=== PATIENT | male | born 1975 | race Caucasian/White ===

== ENCOUNTER 2018-10-20 21:45 | Emergency (ER) | payer BC ==
[2018-10-20] MEDS ORDERED: PROCHLORPERAZINE INJ 5 MG/ML 2 ML VIAL IM ONE (22:15)
[2018-10-20] MEDS ORDERED: Morphine 4 MG/ML VIAL (1 ml) 4 MG/ML VIAL IM ONE (22:15)
[2018-10-20] MEDS ORDERED: Ketorolac INJ* 30 MG/ML 1 ML VIAL IM ONE (22:16)
--- NOTE | 2018-10-20 22:16 | ED ---
Back Pain - HPI Summary HPI Summary: This patient is a 43 year old male presenting to [facility] with a chief complaint of back pain 45 minutes ago. Pt reports having fallen backwards onto a wooden step, resulting in right mid back pain. Pt denies hitting his head. He rates his pain 9/10 in severity. - History of Current Complaint Chief Complaint: EDBackInjuryPain Stated Complaint: FALL OFF STEPS PER PT Time Seen by Provider: 10/20/18 22:10 Hx Obtained From: Patient Onset/Duration: Sudden Onset Onset/Duration: Started Minutes Ago Timing: Constant Severity Initially: Moderate Severity Currently: Moderate Pain Intensity: 9 Pain Scale Used: 0-10 Numeric - Allergies/Home Medications Allergies/Adverse Reactions: Allergies Allergy/AdvReac Type Severity Reaction Status Date / Time Penicillins Allergy Unknown Verified 10/20/18 21:51 Reaction Details PMH/Surg Hx/FS Hx/Imm Hx Endocrine/Hematology History: Denies: Hx Diabetes Cardiovascular History: Denies: Hx Congestive Heart Failure Infectious Disease History: No Infectious Disease History: Denies: Traveled Outside the [place] in Last 30 Days - Family History Known Family History: Negative: Seizure Disorder - Social History Alcohol Use: None Hx Substance Use: No Review of Systems Negative: Fever Positive: Other - Back pain All Other Systems Reviewed And Are Negative: Yes Physical Exam - Summary Physical Exam Summary: VITAL SIGNS: Reviewed. GENERAL: Patient is a well-developed and nourished MALE who is lying comfortable in the stretcher. Patient is not in any acute respiratory distress. HEAD AND FACE: No signs of trauma. No ecchymosis, hematomas or skull depressions. No sinus tenderness. EYES: PERRLA, EOMI x 2, No injected conjunctiva, no nystagmus. EARS: Hearing grossly intact. Ear canals and tympanic membranes are within normal limits. MOUTH: Oropharynx within normal limits. NECK: Supple, trachea is midline, no adenopathy, no JVD, no carotid bruit, no c- spine tenderness, neck with full ROM CHEST: Symmetric, no tenderness at palpation. Tenderness over the posterior right lower rib cage. LUNGS: Clear to auscultation bilaterally. No wheezing or crackles. CVS: Regular rate and rhythm, S1 and S2 present, no murmurs or gallops appreciated. ABDOMEN: Soft, non-tender. No signs of distention. No rebound no guarding, and no masses palpated. Bowel sounds are normal. EXTREMITIES: FROM in all major joints, no edema, no cyanosis or clubbing. NEURO: Alert and oriented x 3. No acute neurological deficits. Speech is normal and follows commands. SKIN: Dry and warm GCS: 15 Triage Information Reviewed: Yes Vital Signs On Initial Exam: Initial Vitals Temp Pulse Resp BP Pulse Ox 99.0 F 68 16 144/103 99 10/20/18 21:45 10/20/18 21:45 10/20/18 21:45 10/20/18 21:45 10/20/18 21:45 Vital Signs Reviewed: Yes Diagnostics - Vital Signs Vital Signs Temp Pulse Resp BP Pulse Ox 10/20/18 21:45 99.0 F 68 16 144/103 99 - Laboratory Result Diagrams: 10/20/18 23:07 10/20/18 23:07 Lab Statement: Any lab studies that have been ordered have been reviewed, and results considered in the medical decision making process. - Radiology Ribs XR Radiology Interpretation Completed By: ED Physician Summary of Radiographic Findings: No fractures. No acute process. Pending official radiologist report. - CT Chest/Abd/Pelvis CT Interpretation Completed By: Radiologist Summary of CT Findings: 1. No evidence of acute intra-abdominal injury. 2. Acute displaced fractures in the right transverse process of L2 through L4. ED Provider has reviewed this report. Back Pain Course/Dx - Course Course Of Treatment: This patient is a 43 year old male presenting to [facility] with a chief complaint of back pain [address] Chest/Abd/Pelvis was remarkable for 1. No evidence of acute intra-abdominal injury. 2. Acute displaced fractures in the right transverse process of L2 through L4. A plan for pain management and discharge was discussed with the patient and he was agreeable with this plan. - Diagnoses Provider Diagnoses: Lumbar vertebral fracture Discharge - Sign-Out/Discharge Documenting (check all that apply): Patient Departure - Discharge Patient Received Moderate/Deep Sedation with Procedure: No - Discharge Plan Condition: Stable Disposition: HOME Prescriptions: oxyCODONE/Acetamin 5/325 MG* [Percocet 5/325 TAB*] 1 tab PO Q6H PRN #20 tab MDD 4 PRN Reason: Pain Patient Education Materials: Back Pain (ED) Referrals: Christine Graham MD [Primary Care Provider] - Additional Instructions: Return to ED with any new or worsening symptoms. - Billing Disposition and Condition Condition: STABLE Disposition: Home - Attestation Statements Document Initiated by Sekou: Yes Documenting Scribe: Ga Blanton Provider For Whom Sekou is Documenting (Include Credential): Uriah Miller MD Scribrudolph Attestation: Ga Desai, scribed for Uriah Miller MD on 10/21/18 at 0647. Scribe Documentation Reviewed: Yes Provider Attestation: The documentation as recorded by the Ga solano accurately reflects the service I personally performed and the decisions made by Isela rangel MD Status of Scribe Document: Viewed
[2018-10-20] MEDS ORDERED: NS 0.9% 1000 ML** 1,000 ML IV ONE (22:51)
[2018-10-20 23:03] LABS: Urine Appearance Clear; Urine Bilirubin Negative (Negative); Urine Blood Negative (Negative); Urine Color Yellow; Urine Glucose Negative (Negative); Urine Ketones Trace (Negative); Urine Nitrite Negative (Negative); Urine Protein Negative (Negative); Urine Specific Gravity 1.017 (1.010-1.030); Urine Urobilinogen Negative (Negative)
[2018-10-20 23:13] LABS: ABS Basophils 0.1 10^3/ul (0-0.2); ABS Eosinophils 0.2 10^3/ul (0-0.6); ABS Lymphocytes 1.3 10^3/ul (1.0-4.8); ABS Monocytes 0.6 10^3/ul (0-0.8); ABS Neutrophils 5.4 10^3/ul (1.5-7.7); Eosinophil % 3.2 %; Hematocrit 43 % (42-52); Hemoglobin 15.3 g/dL (14.0-18.0); Lymphocyte % 17.7 %; Mean Corpuscular HGB Conc 36 g/dL (31-36); Mean Corpuscular Hemoglobin 31 pg (27-31); Mean Corpuscular Volume 88 fL (80-94); Nucleated Red Blood Cells % 0.1; Platelet Count 200 10^3/uL (150-450); Red Blood Count 4.91 10^6 /uL (4.18-5.48); Red Cell Distribution Width 13 % (10-15); White Blood Count 7.6 10^3/uL (3.5-10.8)
[2018-10-20 23:21] LABS: Activated Partial Thrombo Time 30.6 seconds (26.0-38.0); INR 0.98 (0.82-1.09)
[2018-10-20 23:33] LABS: Albumin 4.5 g/dL (3.2-5.2); Albumin/Globulin Ratio 1.5 (1-3); BUN/Creatinine Ratio 17.7 (8-20); Calcium 9.1 mg/dL (8.6-10.3); EGFR African American 102.5 (>60); EGFR Non-African American 84.7 (>60); Potassium 3.5 mmol/L (3.5-5.0); Total Bilirubin 0.5 mg/dL (0.2-1.0); Total Protein 7.5 g/dL (6.4-8.9)
[2018-10-20] MEDS ORDERED: Iohexol 300* (CONTRAST) 10 ML SDV IV ONE (23:49)
[2018-10-21 01:22] VITALS: BP 119/79
== END 2018-10-21 01:21 | disposition home or self-care (01) ==
LOC: ED 21:45
DX: S32.029A Unspecified fracture of second lumbar vertebra, initial encounter for closed fracture (principal); S32.039A Unspecified fracture of third lumbar vertebra, initial encounter for closed fracture; S32.049A Unspecified fracture of fourth lumbar vertebra, initial encounter for closed fracture; S22.31XA Fracture of one rib, right side, initial encounter for closed fracture; W19.XXXA Unspecified fall, initial encounter; Z88.0 Allergy status to penicillin
CPT/HCPCS: 36415; 71260; 74177; 80053; 81003; 82550; 85025; 85610; 85730; 96360; 96372; 99283; J0780; J1885; J2270; Q9967